=== PATIENT | male | born 1995 | race Two or more races ===

== ENCOUNTER 2024-06-06 22:56 | Emergency (ER) | payer OTHER ==
[~2024-06-06] VITALS: Ht 177.8 cm; Wt 72.6 kg
[2024-06-07] MEDS ORDERED: KETOROLAC TROMETHAMINE 60 MG VIAL IM STA (00:29)
[2024-06-07] MEDS ORDERED: TETANUS & DIPHTHERIA TOX,ADULT 0.5 ML VIAL IM STA (00:29)
[2024-06-07] MEDS ORDERED: ACETAMINOPHEN 500 MG GEL..CAP PO STA (00:30)
[2024-06-07] MEDS ORDERED: METOCLOPRAMIDE HCL 5 MG/ML VIAL IM STA (00:31)
[2024-06-07] MEDS ORDERED: KETOROLAC TROMETHAMINE 60 MG VIAL IM ONE (00:34)
[2024-06-07] MEDS ORDERED: ACETAMINOPHEN 500 MG GEL..CAP PO ONE (00:34)
[2024-06-07] MEDS ORDERED: DIPHTH,PERTUSS(ACELL),TET VAC 0.5 ML SYRINGE IM ONE (00:35)
[2024-06-07] MEDS ORDERED: METOCLOPRAMIDE HCL 5 MG/ML VIAL ONE (00:35)
== END 2024-06-07 01:50 | disposition home or self-care (01) ==
LOC: ER 22:56
DX: S05.12XA Contusion of eyeball and orbital tissues, left eye, initial encounter (principal); X83.8XXA Intentional self-harm by other specified means, initial encounter; Y93.89 Activity, other specified; Y92.89 Other specified places as the place of occurrence of the external cause; Y99.9 Unspecified external cause status